=== PATIENT | male | born 1965 | race Caucasian/White ===

== ENCOUNTER 2018-06-01 05:45 | Day surgery (SDC) | payer OTHER ==
[~2018-06-01] VITALS: Ht 172.7 cm; Wt 101.0 kg
[~2018-06-01 05:45] MED LIST: GLIP10 PO; LORA10TA7 PO; METF-960 PO
[2018-06-01] MEDS ORDERED: LIDOCAINE 2% 5 ML JELLY TP ONE (05:46)
[2018-06-01] MEDS ORDERED: LIDOCAINE 4% 50 ML SOLUTION TP ONE (05:46)
[2018-06-01] MEDS ORDERED: BENZOCAINE 20% 50 MCG/SPRAY 57 GM TP ONE (05:46)
[2018-06-01] MEDS ORDERED: SODIUM CHLORIDE 0.9% 1,000 ML IV ONE ×2 (06:12→06:30)
[2018-06-01 07:00] LABS: GLUCOMETER DEV NAME(LOC) SDS.; GLUCOSE,POINT OF CARE 127 MG/DL (70-110)
[2018-06-01] MEDS ORDERED: MONT10TA21 PO (07:18)
[2018-06-01] MEDS ORDERED: ALBU8HFA IH (07:18)
[2018-06-01] MEDS ORDERED: SITA50 PO (07:18)
[2018-06-01] MEDS ORDERED: METF-960 PO (07:18)
[2018-06-01] MEDS ORDERED: CARV6 PO (07:18)
[2018-06-01] MEDS ORDERED: BECL10.62 IH (07:18)
[2018-06-01] MEDS ORDERED: OMEP20 PO (07:18)
[2018-06-01] MEDS ORDERED: GLIP10 PO (07:18)
[2018-06-01] MEDS ORDERED: FentaNYL CITRATE-PF 100 MCG/2 ML VIAL ONE (08:00)
[2018-06-01] MEDS ORDERED: MIDAZOLAM HCL 2 MG/2 ML VIAL ONE (08:00)
[2018-06-01] MEDS ORDERED: MethylPREDNISolone SOD SUCC 125 MG/2 ML VIAL IVP ONE (08:30)
[2018-06-01] MEDS ORDERED: MethylPREDNISolone SOD SUCC 125 MG/2 ML VIAL ONE (08:34)
[2018-06-01] MEDS ORDERED: OXYGEN THERAPY IH SCH (20:00)
== END 2018-06-01 10:30 | disposition home or self-care (01) ==
LOC: SURGERY 05:45
PROVIDERS: ATTEND Internal Medicine Critical Care Medicine
DX: J38.4 Edema of larynx (principal); B37.0 Candidal stomatitis; R91.1 Solitary pulmonary nodule; I10 Essential (primary) hypertension; E11.9 Type 2 diabetes mellitus without complications; G47.30 Sleep apnea, unspecified; Z79.899 Other long term (current) drug therapy; Z98.890 Other specified postprocedural states
CPT/HCPCS: 31623; 31624; 71045; 82962; 87015; 87070; 87101; 87205; 87206; 87220; 88108; 88312; 93005; J2250; J2930; J3010; J7030